=== PATIENT | male | born 1935 | race Caucasian/White ===

== ENCOUNTER 2018-06-22 20:32 | Emergency (ER) | payer MEDICARE, OTHER ==
[~2018-06-22] VITALS: Ht 175.3 cm; Wt 100.0 kg
[2018-06-22 20:32] VITALS: Ht 175.3 cm; Wt 100.0 kg
[~2018-06-22 20:32] MED LIST: EPINEPHrine 0.1 MG/ML SYG ONE
--- NOTE | 2018-06-22 20:58 | ERD ---
ER Documentation Chief Complaint Chief Complaint Cardiac arrest HPI 83-year-old male with a history of respiratory failure, seizure disorder, CVA, encephalopathy, hypertension brought in by ambulance from his nursing facility after an unwitnessed cardiac arrest. They reportedly arrived at the facility at 1745. CPR was in progress. Patient was asystolic on the monitor. CPR was initiated and epinephrine was given. They did CPR for about 12 minutes and then saw an improvement in his CO2 and a rhythm on the monitor that appeared to be sinus tachycardia. They were unable to get a blood glucose but placed an IV in the right foot. Upon arrival, the patient appeared mottled and had no pulses. At this point CPR was not in progress. CPR was initiated while patient arrived. He was being bagged via his trach ROS unable to obtain PMhx/Soc Unable to obtain History of Surgery: Yes (Right hemicraniectomy, trach placement, G-tube placement) Hx Neurological Disorder: Yes Hx Respiratory Disorders: Yes (Respiratory failure) Hx Miscellaneous Medical Probl: Yes FmHx Unable to obtain Physical Exam Vitals Vital Signs Date Temp Pulse Resp B/P (MAP) Pulse Ox O2 O2 Flow FiO2 Time Delivery Rate 06/22/18 97.4 0 0 0/0 (0) 0 20:32 Physical Exam VITAL SIGNS: GENERAL: Patient is lying on gurney and is unresponsive HEAD: right sided concave deformity (s/p craniectomy) EYES: Pupils are nonreactive. ENT: Oropharynx and nasopharynx are clear NECK: Trach in place RESPIRATORY: Breath sounds equal bilaterally with bagging CV: No heart sounds heard. No palpable carotid or femoral pulses ABDOMEN: Distended with G-tube in place, leaking yellow green fluid. reducible umbilical hernia EXTREMITIES: No deformity. contractures noted SKIN: cool, Mottled, pale, slightly jaundiced. No diaphoresis NEUROLOGIC: Not alert. Unresponsive to external stimuli Procedures/MDM Patient arrived with EMS with reported return of spontaneous circulation. However they did not report that they had felt a pulse. They reported that the patient was initially in asystole then they got a rhythm on the monitor and improved end-tidal CO2. From this they deduced that the patient had ROSC. However when the patient arrived, he did not have any pulses. Bedside ultrasound was done and he had no cardiac activity. He had PEA on the monitor. CPR was resumed. He was being bagged via his trach. Cardiopulmonary Resuscitation by me: See code documentation for specific details. ACLS and BLS were performed with high quality chest compressions and minimal interruptions. Reversible causes were assessed and treated. Unfortunately, we did not get ROSC with all of our efforts. Gven prolonged down time of about 48 minutes with no ROSC, resuscitation efforts were stopped as neurologically intact survival was significantly unlikely. Time of : 20:28 Departure Diagnosis: Primary Impression: Cardiac arrest SHONDA TAYLOR MD Jun 22, 2018 20:58
== END 2018-06-23 02:05 | disposition expired ==
LOC: E/R 20:32
DX: I46.9 Cardiac arrest, cause unspecified (principal); I10 Essential (primary) hypertension; Z86.73 Personal history of transient ischemic attack (TIA), and cerebral infarction without residual deficits
CPT/HCPCS: 92950; 99285; J0171